=== PATIENT | male | born 1975 | race Caucasian/White ===

== ENCOUNTER → 2017-07-05 | Emergency (ER) | payer OTHER ==
[~2017-07-05] VITALS: Ht 182.9 cm; Wt 117.9 kg
[~2017-07-05] MED LIST: INTESTINEX680 M1 PO; PEPCID AC20 MG PO; ZOFRAN4 MG PO
== END | disposition home or self-care (01) ==
LOC: ER 10:25
DX: K52.9 Noninfective gastroenteritis and colitis, unspecified (principal)